=== PATIENT | male | born 1945 | race Caucasian/White ===

== ENCOUNTER 2017-02-16 14:26 | Emergency (ER) | payer MEDICARE ==
[2017-02-16 14:45] VITALS: RESP 18; TEMP 98.3
[2017-02-16] MEDS ORDERED: SODIUM CHLORIDE 0.9% 1,000 ML IV STA ×2 (15:01)
--- NOTE | 2017-02-16 15:04 | ED ---
Extremity Problem HPI - General Chief complaint: Extremity Problem,Nontraumatic Stated complaint: RT LEG CRAMPING Time Seen by Provider: 02/16/17 14:50 Source: patient, family, RN notes reviewed Mode of arrival: EMS Limitations: no limitations - History of Present Illness Initial comments: This is a 71-year-old male with a history of gout and diabetes who states he drove straight through from [place] to [facility] [employer] on starting on Saturday and arriving on . He states he had drink any water or fluids during that time and as she did not eat. He states over last couple days he is been doing a lot of running around and has not ate or drank much. States her last day or so he has had crampy type pain intermittently over the medial aspect of the right upper thigh. He denies any chest pain shortness breath fevers chills sweats or other symptoms he denies any focal loss of function. Is no prior history of DVTs he does believe he is dehydrated. He took some muscle relaxers the blunt his without much relief. He denies any other complaints he denies any trauma. MD Complaint: extremity pain - Related Data Home Medications Medication Instructions Recorded Confirmed Allopurinol [Zyloprim] 100 mg PO DAILY 02/16/17 02/16/17 Aspirin EC [Ecotrin Low Dose] 81 mg PO DAILY 02/16/17 02/16/17 Atorvastatin [Lipitor] 10 mg PO DAILY 02/16/17 02/16/17 Fenofibrate [Lofibra] 54 mg PO DAILY 02/16/17 02/16/17 Loratadine [Claritin] 10 mg PO DAILY PRN 02/16/17 02/16/17 Losartan [Cozaar] 50 mg PO DAILY 02/16/17 02/16/17 Naproxen Sodium [Naproxen Sodium 550 mg PO BID PRN 02/16/17 02/16/17 DS] Potassium 99 mg PO DAILY 02/16/17 02/16/17 metFORMIN HCL [Metformin HCl] 1,000 mg PO W/BRKFST 02/16/17 02/16/17 metFORMIN HCL [Metformin HCl] 500 mg PO W/SUPPER 02/16/17 02/16/17 Previous Rx's Medication Instructions Recorded Ibuprofen 800 mg PO Q6HR PRN #20 tablet 02/16/17 Magnesium 200 mg PO DAILY #14 tablet 02/16/17 Allergies Allergy/AdvReac Type Severity Reaction Status Date / Time No Known Allergies Allergy Verified 02/16/17 17:03 Review of Systems ROS Statement: Those systems with pertinent positive or pertinent negative responses have been documented in the HPI. ROS Other: All systems not noted in ROS Statement are negative. Past Medical History Past Medical History: Diabetes Mellitus, Hypertension, Osteoarthritis (OA) Additional Past Medical History / Comment(s): gout History of Any Multi-Drug Resistant Organisms: None Reported Additional Past Surgical History / Comment(s): shoulder/rotator cuff Past Psychological History: No Psychological Hx Reported Smoking Status: Former smoker Past Alcohol Use History: Daily General Exam - General Exam Comments Initial Comments: This is a well-developed well-nourished awake alert oriented times 3 male Limitations: no limitations General appearance: alert, anxious, in distress Head exam: Present: atraumatic, normocephalic, normal inspection Eye exam: Present: normal appearance, PERRL, EOMI. Absent: scleral icterus, conjunctival injection, periorbital swelling ENT exam: Present: mucous membranes dry Neck exam: Present: normal inspection. Absent: tenderness, meningismus, lymphadenopathy Respiratory exam: Present: normal lung sounds bilaterally. Absent: respiratory distress, wheezes, rales, rhonchi, stridor Cardiovascular Exam: Present: regular rate, normal rhythm, normal heart sounds. Absent: systolic murmur, diastolic murmur, rubs, gallop, clicks GI/Abdominal exam: Present: soft, normal bowel sounds. Absent: distended, tenderness, guarding, rebound, rigid Rectal exam: Present: deferred Extremities exam: Present: normal inspection, full ROM, tenderness (Tennis over the medial aspect of the right thigh. No definite palpable cords. No calf tenderness bilaterally no edema.), normal capillary refill. Absent: pedal edema , joint swelling, calf tenderness Back exam: Present: normal inspection Neurological exam: Present: alert, oriented X3, CN II-XII intact Psychiatric exam: Present: normal affect, normal mood Skin exam: Present: warm, dry, intact, normal color. Absent: rash Course Vital Signs 02/16/17 14:41 Temperature 98.3 F Pulse Rate 72 Respiratory 18 Rate Blood Pressure 191/92 O2 Sat by Pulse 99 Oximetry Medical Decision Making - Medical Decision Making I did discuss findings with patient has patient does admit that he had been walking a lot on [place] hard to him driving back home earlier this week. He states he walked about 4 miles. He is feeling improved the presentation is consistent with musculoskeletal pain. Patient was instructed to increase his oral fluids as well as magnesium he does have potassium supplementation at home. He is follow-up with his doctor and return when necessary she does have also adequate Flexeril at home. - Lab Data Result diagrams: 02/16/17 15:15 02/16/17 15:15 Lab Results 02/16/17 02/16/17 02/16/17 Range/Units 15:15 15:15 15:15 WBC 7.4 (3.8-10.6) k/uL RBC 4.31 (4.30-5.90) m/uL Hgb 13.9 (13.0-17.5) gm/dL Hct 38.3 L (39.0-53.0) % MCV 88.8 (80.0-100.0) fL MCH 32.2 (25.0-35.0) pg MCHC 36.2 (31.0-37.0) g/dL RDW 13.0 (11.5-15.5) % Plt Count 141 L (150-450) k/uL Neutrophils % 74 % Lymphocytes % 18 % Monocytes % 5 % Eosinophils % 1 % Basophils % 0 % Neutrophils # 5.5 (1.3-7.7) k/uL Lymphocytes # 1.3 (1.0-4.8) k/uL Monocytes # 0.4 (0-1.0) k/uL Eosinophils # 0.1 (0-0.7) k/uL Basophils # 0.0 (0-0.2) k/uL Hyperchromasia Slight D-Dimer (<0.60) mg/L FEU Sodium 139 (137-145) mmol/L Potassium 4.1 (3.5-5.1) mmol/L Chloride 109 H (98-107) mmol/L Carbon Dioxide 17 L (22-30) mmol/L Anion Gap 13 mmol/L BUN 17 (9-20) mg/dL Creatinine 0.69 (0.66-1.25) mg/dL Est GFR (MDRD) Af Amer >60 (>60 ml/min/1.73 sqM) Est GFR (MDRD) Non-Af >60 (>60 ml/min/1.73 sqM) Glucose 169 H (74-99) mg/dL Calcium 9.2 (8.4-10.2) mg/dL Magnesium 1.5 L (1.6-2.3) mg/dL Total Bilirubin 1.2 (0.2-1.3) mg/dL AST 34 (17-59) U/L ALT 48 (21-72) U/L Alkaline Phosphatase 68 (38-126) U/L Total Creatine Kinase 171 H (55-170) U/L CK-MB (CK-2) 1.9 (0.0-2.4) ng/mL CK-MB (CK-2) Rel Index 1.1 Troponin I <0.012 (0.000-0.034) ng/mL Total Protein 6.8 (6.3-8.2) g/dL Albumin 4.2 (3.5-5.0) g/dL 02/16/17 Range/Units 15:15 WBC (3.8-10.6) k/uL RBC (4.30-5.90) m/uL Hgb (13.0-17.5) gm/dL Hct (39.0-53.0) % MCV (80.0-100.0) fL MCH (25.0-35.0) pg MCHC (31.0-37.0) g/dL RDW (11.5-15.5) % Plt Count (150-450) k/uL Neutrophils % % Lymphocytes % % Monocytes % % Eosinophils % % Basophils % % Neutrophils # (1.3-7.7) k/uL Lymphocytes # (1.0-4.8) k/uL Monocytes # (0-1.0) k/uL Eosinophils # (0-0.7) k/uL Basophils # (0-0.2) k/uL Hyperchromasia D-Dimer 0.45 (<0.60) mg/L FEU Sodium (137-145) mmol/L Potassium (3.5-5.1) mmol/L Chloride (98-107) mmol/L Carbon Dioxide (22-30) mmol/L Anion Gap mmol/L BUN (9-20) mg/dL Creatinine (0.66-1.25) mg/dL Est GFR (MDRD) Af Amer (>60 ml/min/1.73 sqM) Est GFR (MDRD) Non-Af (>60 ml/min/1.73 sqM) Glucose (74-99) mg/dL Calcium (8.4-10.2) mg/dL Magnesium (1.6-2.3) mg/dL Total Bilirubin (0.2-1.3) mg/dL AST (17-59) U/L ALT (21-72) U/L Alkaline Phosphatase (38-126) U/L Total Creatine Kinase (55-170) U/L CK-MB (CK-2) (0.0-2.4) ng/mL CK-MB (CK-2) Rel Index Troponin I (0.000-0.034) ng/mL Total Protein (6.3-8.2) g/dL Albumin (3.5-5.0) g/dL - Radiology Data Radiology results: report reviewed (I did review the imaging and report no evidence of any DVT or abnormality), image reviewed Disposition Clinical Impression: Right leg pain, Muscle strain, Dehydration Disposition: HOME SELF-CARE Condition: Good Instructions: Muscle Strain (ED), Musculoskeletal Pain (ED), Dehydration (ED) Prescriptions: Ibuprofen 800 mg PO Q6HR PRN #20 tablet PRN Reason: Pain Magnesium 200 mg PO DAILY #14 tablet Referrals: Gavin Jackson DO [Primary Care Provider] - 1-2 days
[2017-02-16] MEDS ORDERED: KETOROLAC 30 MG/ML 1 ML VIAL IVP STA ×2 (15:17→17:13)
[2017-02-16 15:30] LABS: Basophils % (A) 0 %; CH 33.2; CHCM 37.5; Eosinophils # (A) 0.1 k/uL (0-0.7); Eosinophils % (A) 1 %; HCT 38.3 % (39.0-53.0); HDW 3.16; HGB 13.9 gm/dL (13.0-17.5); Hyperchromasia Slight; Luc # (Auto) 0.13; Luc % (Auto) 2; Lymphocytes # (A) 1.3 k/uL (1.0-4.8); Lymphocytes % (A) 18 %; MCH 32.2 pg (25.0-35.0); MCHC 36.2 g/dL (31.0-37.0); MCV 88.8 fL (80.0-100.0); Monocytes # (A) 0.4 k/uL (0-1.0); Monocytes % (A) 5 %; Neutrophils # (A) 5.5 k/uL (1.3-7.7); Neutrophils % (A) 74 %; RBC 4.31 m/uL (4.30-5.90); WBC 7.4 k/uL (3.8-10.6); WBC (Perox) 7.61
[2017-02-16 15:51] LABS: ALT 48 U/L (21-72); AST 34 U/L (17-59); Alkaline Phosphatase 68 U/L (38-126); Anion Gap 13 mmol/L; Blood Urea Nitrogen 17 mg/dL (9-20); Calcium 9.2 mg/dL (8.4-10.2); Carbon Dioxide 17 mmol/L (22-30); Chloride 109 mmol/L (98-107); Creatine Kinase 171 U/L (55-170); Glucose 169 mg/dL (74-99); Magnesium 1.5 mg/dL (1.6-2.3); Non-African American GFR(MDRD) >60 (>60 ml/min/1.73 sqM); Potassium 4.1 mmol/L (3.5-5.1); Sodium 139 mmol/L (137-145); Total Bilirubin 1.2 mg/dL (0.2-1.3); Total Protein 6.8 g/dL (6.3-8.2)
[2017-02-16] MEDS ORDERED: MAGNESIUM SULFATE-D5W PMX 1 GM in DEXTROSE/WATER 1 100ML.BAG IVPB ONE (16:00)
[2017-02-16 16:02] LABS: Creatine Kinase MB 1.9 ng/mL (0.0-2.4); Troponin I <0.012 ng/mL (0.000-0.034)
--- NOTE | 2017-02-16 16:58 | US ---
EXAMINATION TYPE: US venous doppler duplex LE RT DATE OF EXAM: 02/16/2017 3:05 PM COMPARISON: NONE CLINICAL HISTORY: Pain. Right leg pain SIDE PERFORMED: right TECHNIQUE: The lower extremity deep venous system is examined utilizing real time linear array sonog sadie with graded compression, doppler sonography and color-flow sonography. VESSELS IMAGED: External Iliac Vein (EIV) Common Femoral Vein Deep Femoral Vein Greater Saphenous Vein * Femoral Vein Popliteal Vein Small Saphenous Vein * Proximal Calf Veins (* superficial vessels) Right Leg: No evidence of DVT IMPRESSION: Grayscale, color doppler, spectral doppler imaging performed of the deep veins of the lo wer extremities. There is normal flow, compressibility, vascular waveforms bilaterally. No evident deep venous thrombosis within the right lower extremity as visualized.
[2017-02-16 18:43] VITALS: BP 140/74; PULSE 70
== END 2017-02-16 19:06 | disposition home or self-care (01) ==
LOC: EC 14:26
DX: S76.911A Strain of unspecified muscles, fascia and tendons at thigh level, right thigh, initial encounter (principal); E86.0 Dehydration; M79.604 Pain in right leg; I10 Essential (primary) hypertension; E11.9 Type 2 diabetes mellitus without complications; M19.90 Unspecified osteoarthritis, unspecified site; M10.9 Gout, unspecified; Z87.891 Personal history of nicotine dependence; Z79.82 Long term (current) use of aspirin; Z79.84 Long term (current) use of oral hypoglycemic drugs; Z79.899 Other long term (current) drug therapy; X50.9XXA Other and unspecified overexertion or strenuous movements or postures, initial encounter; Y93.89 Activity, other specified
CPT/HCPCS: 99284; 96365; 96375; 96376; 96361 ×2; 36415; 85379; 80053; 82550; 82553; 83735; 84484; 85025; 93971; J1885; J3475

== ENCOUNTER → 2020-10-25 | Outpatient (CLI) | payer MEDICARE ==
--- NOTE | 2020-10-25 07:02 | MR ---
EXAMINATION TYPE: MR lumbar spine wo con DATE OF EXAM: 10/25/2020 COMPARISON: NONE HISTORY: Lower back pain into left leg x 3 years. Lumbar radiculopathy and spondylolisthesis per josette gilmore TECHNIQUE: Multiplanar, multisequence imaging of the lumbar spine is performed without IV contrast. FINDINGS: Sagittal images of the lumbar spine show vertebral body heights to appear satisfactory. The re is grade 1 anterolisthesis of L4 on L5. Multilevel disc desiccation and disc space narrowing is p resent. There is moderate disc space narrowing L1-L2 through the L3-L4 levels, vacuum disc phenomenon noted at L1-L2 and L2-L3 levels. The conus medullaris is normal in position and signal ending mid L1 level. There is prominence of epidural fat beginning L2 level extending caudally. Fairly moderate mu ltilevel anterior spurring. Heterogeneous Modic type II endplate change and anterior superior L2 endp late. Axial images show T12-L1 level to appear within normal limits. Axial images at L1-L2 level show moderate broad disc bulge effacing the anterior thecal sac along wit h [id number] facet degenerative changes bilaterally. There is mild/moderate right greater than left bilateral anterior inferior neural foraminal narrowing with more prominent right foraminal disc protrusion component. Axial images at L2-L3 levels of moderate broad disc bulge effacing the anterior thecal sac. There is moderate facet degenerative changes and ligamentum flavum hypertrophy. Prominent epidural fat. Modera te bilateral anterior inferior neural foraminal narrowing. Axial images at L3-L4 level show mild/moderate facet degenerative changes bilaterally. There is moder ate broad disc bulge. There is moderate bilateral neural foraminal narrowing. Encroachment on extrafo raminal L3 nerves is felt present bilaterally axial image 13 corresponding to sagittal images. Axial images at L4-L5 levels with spondylolisthesis with fairly advanced facet degenerative changes a nd ligamentum flavum hypertrophy. There is moderate broad-based posterior disc protrusion. There is s marsha canal stenosis greatest at this level axial image 7 and sagittal image 9. There is mild bilater al anteroinferior neural foraminal narrowing. Axial images at L5-S1 level show moderate to advanced facet degenerative changes bilaterally. There i s broad-based central disc protrusion but the spinal canal is preserved. There is [id number] bi lateral neural foraminal narrowing. Paraspinal muscle bulk is maintained. IMPRESSION: Epidural lipomatosis causes generalized spinal canal narrowing. Multilevel fairly signifi cant degenerative changes greatest at L4-L5 level as detailed above.
== END | disposition home or self-care (01) ==
LOC: RADMRIMAIN 06:03
PROVIDERS: ATTEND Anesthesiology
DX: M48.061 Spinal stenosis, lumbar region without neurogenic claudication (principal); M47.26 Other spondylosis with radiculopathy, lumbar region; M47.27 Other spondylosis with radiculopathy, lumbosacral region; E88.2 Lipomatosis, not elsewhere classified
CPT/HCPCS: 72148